=== PATIENT | male | born 1955 | race Caucasian/White ===

== ENCOUNTER 2025-04-16 20:43 | Inpatient (IN) | payer MEDICARE, OTHER ==
[~2025-04-16] VITALS: Ht 175.3 cm; Wt 68.9 kg
[2025-04-16 21:09] LABS: BASOPHILS % (AUTO) 0.7 % (0.0-2.0); EOSINOPHILS # (AUTO) 0.3 K/uL (0.0-0.7); EOSINOPHILS % (AUTO) 4.5 % (0.0-7.0); HEMATOCRIT 34.9 % (36.7-47.1); HEMOGLOBIN 11.7 g/dL (12.5-16.3); LYMPHOCYTES # (AUTO) 1.7 K/uL (0.8-4.8); LYMPHOCYTES % (AUTO) 26.1 % (20.5-51.5); MEAN CORPUSCULAR HEMOGLOBIN 29.6 uug (23.8-33.4); MEAN CORPUSCULAR HGB CONC 34 g/dL (32.5-36.3); MEAN CORPUSCULAR VOLUME 88.2 fL (73.0-96.2); MONOCYTES # (AUTO) 0.6 K/uL (0.1-1.30); MONOCYTES % (AUTO) 9.5 % (0.0-11.0); NEUTROPHILS % (AUTO) 59.2 % (38.5-71.5); PLATELET COUNT (AUTO) 295 K/uL (152-348); RED BLOOD CELL COUNT(AUTO) 3.96 MIL/uL (4.06-5.63); WHITE BLOOD COUNT (AUTO) 6.7 K/uL (3.6-10.2)
[2025-04-16 21:11] LABS: DIFFERENTIAL COMMENT 1
[2025-04-16] MEDS ORDERED: ACET-3117 PO (21:11)
[2025-04-16] MEDS ORDERED: CLON0.1T PO (21:11)
[2025-04-16] MEDS ORDERED: SERT50TA PO (21:11)
[2025-04-16] MEDS ORDERED: ASPI81TA31 PO (21:11)
[2025-04-16] MEDS ORDERED: PSYL0.5211 PO (21:11)
[2025-04-16] MEDS ORDERED: FERR-68 PO (21:11)
[2025-04-16] MEDS ORDERED: MULT-213 PO (21:11)
[2025-04-16] MEDS ORDERED: IPRA3AMP22 IH (21:11)
[2025-04-16] MEDS ORDERED: POLY250017 PO (21:11)
[2025-04-16] MEDS ORDERED: RISP1TAB7 PO (21:11)
[2025-04-16] MEDS ORDERED: LACT1TAB6 PO (21:11)
[2025-04-16] MEDS ORDERED: SENN-18 PO (21:11)
[2025-04-16] MEDS ORDERED: AMLO-212 PO (21:11)
[2025-04-16] MEDS ORDERED: LACT1CAP26 PO (21:11)
[2025-04-16] MEDS ORDERED: DONE5TAB34 PO (21:11)
[2025-04-16] MEDS ORDERED: ASCO500C18 PO (21:11)
[2025-04-16] MEDS ORDERED: ATOR40TA PO (21:11)
[2025-04-16] MEDS ORDERED: TRAZ-257 PO (21:11)
[2025-04-16] MEDS ORDERED: FOLI1TAB27 PO (21:11)
[2025-04-16] MEDS ORDERED: RISP2TAB5 PO (21:11)
[2025-04-16] MEDS ORDERED: LIDOCAINE 2% (GLYDO= UROJET) 10 ML JELLY MM ONE (21:14)
[2025-04-16 21:16] LABS: CALCIUM 8.9 mg/dL (8.5-10.1); CARBON DIOXIDE 27 mmol/L (21-32); CHLORIDE 109 mmol/L (98-107); CREATININE 1.3 mg/dL (0.6-1.3); GLUCOSE 130 mg/dL (74-106); POTASSIUM 3.9 mmol/L (3.5-5.1); SODIUM SERUM 145 mmol/L (136-145); UREA NITROGEN, BLOOD 28 mg/dL (7-18)
[2025-04-16 21:22] LABS: ACETAMINOPHEN < 2.0 ug/mL (10-30); ALANINE AMINOTRANSFERASE 58 U/L (16-63); ALBUMIN 2.8 g/dL (3.4-5.0); ALKALINE PHOSPHATASE 104 U/L (50-136); ASPARTATE AMINOTRANSFERASE 20 U/L (15-37); BILIRUBIN,DIRECT 0.1 mg/dL (0.0-0.2); BILIRUBIN,TOTAL 0.2 mg/dL (0.2-1.0); TOTAL PROTEIN, SERUM 7.2 g/dL (6.4-8.2)
[2025-04-16 21:25] LABS: ETHANOL < 3 MG/DL (0-10)
[2025-04-16 21:29] LABS: THYROID STIMULATING HORMONE 4.925 mIU/mL (0.358-3.740)
[2025-04-16] MEDS: LIDOCAINE 2% (GLYDO= UROJET) 10 ML JELLY MM ONE (21:30)
[2025-04-16 21:35] LABS: *BILIRUBIN,URIN NEGATIVE (NEGATIVE); *BLOOD, URINE NEGATIVE (NEGATIVE); *CLARITY,URINE CLEAR (CLEAR); *COLOR,URINE YELLOW (YELLOW); *KETONES,URINE NEGATIVE (NEGATIVE); *PROTEIN,URINE NEGATIVE (NEGATIVE); *UROBILINOGEN,URINE 0.2 E.U./dl (NORMAL); LEUKOCYTE ESTERASE ,URINE NEGATIVE (NEGATIVE); NITRITE, URINE NEGATIVE (NEGATIVE); PH,URINE 5.5 (5.0-8.0); UGLUCOSE NEGATIVE (NEGATIVE)
[2025-04-16 21:47] LABS: *AMPHETAMINE, URINE NEGATIVE (NEGATIVE); *BARBITURATE, URINE NEGATIVE (NEGATIVE); *BENZODIAZEPINE, URINE NEGATIVE (NEGATIVE); *CANNABINOID, URINE NEGATIVE (NEGATIVE); *COCCAINE, URINE NEGATIVE (NEGATIVE); *OPIATE, URINE NEGATIVE (NEGATIVE); *PHENCYCLIDINE SCREEN,URINE NEGATIVE (NEGATIVE); FENTANYL, URINE NEGATIVE (NEGATIVE)
[2025-04-17] MEDS ORDERED: MAG HYDROX/AL HYDROX/SIMETH 30 ML LIQUID UDC PO PRN (03:30)
[2025-04-17] MEDS ORDERED: MAGNESIUM HYDROXIDE 30 ML LIQUID UDC PO PRN (03:30)
[2025-04-17] MEDS ORDERED: TEMAZEPAM 7.5 MG CAPSULE PO PRN (03:30)
[2025-04-17] MEDS ORDERED: LORAZEPAM 1 MG TABLET PO PRN (03:30)
[2025-04-17] MEDS ORDERED: ACETAMINOPHEN 325 MG TABLET PO PRN (03:30)
[2025-04-17 07:39] VITALS: BP 165/83; TEMP 98.2; O2SAT 96
[2025-04-17] MEDS ORDERED: ACET325T53 PO (14:51)
[2025-04-17] MEDS ORDERED: PSYL1POW PO (14:56)
[2025-04-17 15:42] VITALS: BP 164/92; TEMP 98.2; O2SAT 98
[2025-04-17] MEDS: SERTRALINE HCL 50 MG TABLET PO SCH (16:54)
[2025-04-17] MEDS ORDERED: ALBUTEROL SULFATE 2.5 MG/3 ML NEBU NEB PRN (17:00)
[2025-04-17] MEDS ORDERED: IPRATROPIUM BROMIDE 0.5 MG/2.5 ML NEBU NEB PRN (17:00)
[2025-04-17] MEDS ORDERED: MIRALAX 17 GM POWD.PACK PO PRN (17:00)
[2025-04-17] MEDS ORDERED: CLONIDINE HCL 0.1 MG TABLET PO PRN (17:00)
[2025-04-17] MEDS: AMLODIPINE 5 MG TABLET PO SCH (17:59)
[2025-04-17] MEDS: SENNOSIDES 1 TABLET PO SCH (17:59)
[2025-04-17 20:00] VITALS: BP 144/63; TEMP 98; O2SAT 98
[2025-04-17] MEDS: risperiDONE 2 MG TABLET PO SCH (20:15)
[2025-04-17] MEDS: ATORVASTATIN 40 MG TABLET PO SCH (20:15)
[2025-04-18 08:17] LABS: ALBUMIN 2.6 g/dL (3.4-5.0); BILIRUBIN,TOTAL 0.3 mg/dL (0.2-1.0); CALCIUM 8.3 mg/dL (8.5-10.1); CREATININE 0.9 mg/dL (0.6-1.3); POTASSIUM 3.8 mmol/L (3.5-5.1); TOTAL PROTEIN, SERUM 6.7 g/dL (6.4-8.2)
[2025-04-18] MEDS ORDERED: risperiDONE 1 MG/ML UDC GT SCH (09:00)
[2025-04-18] MEDS: ACIDOPHILUS/BULGARICUS CHEW TAB PO SCH (09:01)
[2025-04-18] MEDS: risperiDONE 1 MG TABLET PO SCH (09:01)
[2025-04-18] MEDS: FOLIC ACID 1 MG TABLET PO SCH (09:01)
[2025-04-18] MEDS: ASCORBIC ACID 500 MG TABLET PO SCH (09:01)
[2025-04-18] MEDS: ASPIRIN 81 MG TAB.CHEW PO SCH (09:01)
[2025-04-18] MEDS: MULTIVITAMINS,THERAPEUTIC TABLET PO SCH (09:01)
[2025-04-18] MEDS: PSYLLIUM SEED PACKET PO SCH (09:05)
[2025-04-18 10:50] VITALS: BP 124/70; TEMP 97.9; O2SAT 96
[2025-04-18 17:41] VITALS: BP 118/58; TEMP 98; O2SAT 97
[2025-04-18 20:00] VITALS: BP 129/63; TEMP 98.5; O2SAT 96
[2025-04-18] MEDS: ATORVASTATIN 10 MG TABLET PO SCH (21:18)
[2025-04-18] MEDS: TEMAZEPAM 7.5 MG CAPSULE PO PRN (21:18)
[2025-04-19 08:18] VITALS: BP 144/78; TEMP 98.1; O2SAT 96
[2025-04-19 17:05] VITALS: BP 151/67; TEMP 98.5; O2SAT 97
[2025-04-19 20:00] VITALS: BP 138/69; TEMP 98.2; O2SAT 95
[2025-04-19] MEDS: LORAZEPAM 1 MG TABLET PO PRN (20:30)
[2025-04-20 08:20] VITALS: BP 142/58; TEMP 97.4; O2SAT 98
[2025-04-20] MEDS: ENSURE ENLIVE (VAN) 240 ML LIQUID PO SCH (08:49)
[2025-04-20 16:48] VITALS: BP 114/79; TEMP 98.3; O2SAT 98
[2025-04-20 22:13] VITALS: BP 125/68; TEMP 98.4; O2SAT 96
[2025-04-21 07:30] VITALS: BP 171/85; TEMP 97.8; O2SAT 100
[2025-04-21] MEDS: risperiDONE 1 MG TABLET PO SCH (09:49)
[2025-04-21 11:00] VITALS: BP 144/75; O2SAT 96
[2025-04-21 16:30] VITALS: BP 138/79; TEMP 98.1; O2SAT 96
[2025-04-21 20:11] VITALS: BP 130/74; TEMP 98.1; O2SAT 98
[2025-04-22 07:52] VITALS: BP 141/71; TEMP 98.4; O2SAT 98
[2025-04-22 15:19] VITALS: BP 130/62; TEMP 98.2; O2SAT 98
[2025-04-22 20:00] VITALS: BP 110/64; TEMP 97.7; O2SAT 95
[2025-04-23 07:59] VITALS: BP 123/65; TEMP 98.4; O2SAT 96
[2025-04-23] MEDS ORDERED: risperiDONE 1 MG TABLET PO SCH (09:00)
[2025-04-23] MEDS: risperiDONE 2 MG TABLET PO SCH (09:46)
[2025-04-23 15:31] VITALS: BP 126/68; TEMP 98.2; O2SAT 98
[2025-04-23 20:00] VITALS: BP 135/72; TEMP 98.2; O2SAT 99
[2025-04-24 08:17] VITALS: BP 156/72; TEMP 98.2; O2SAT 98
[2025-04-24 15:34] VITALS: BP 142/63; TEMP 98.2; O2SAT 94
[2025-04-24 20:09] VITALS: BP 125/66; TEMP 98.1; O2SAT 99
[2025-04-25 08:30] VITALS: BP 145/68; TEMP 98.1; O2SAT 97
[2025-04-25 20:00] VITALS: BP 148/71; TEMP 98; O2SAT 98
[2025-04-26 08:22] VITALS: BP 153/51; TEMP 98.1; O2SAT 98
[2025-04-26] MEDS: SERTRALINE HCL 50 MG TABLET PO SCH (09:15)
[2025-04-26 16:55] VITALS: BP 139/71; TEMP 98; O2SAT 98
[2025-04-26 20:02] VITALS: BP 142/64; TEMP 98.1; O2SAT 96
[2025-04-27 08:30] VITALS: BP 156/69; TEMP 98.6; O2SAT 99
[2025-04-28 07:59] VITALS: BP 111/61; TEMP 97.8; O2SAT 98
[2025-04-28] MEDS: PSYLLIUM SEED PACKET PO SCH (08:50)
[2025-04-28 16:42] VITALS: BP 119/68; TEMP 97.2; O2SAT 97
[2025-04-28 20:12] VITALS: BP 134/64; TEMP 97.9; O2SAT 96
[2025-04-29 08:49] VITALS: BP 147/72; TEMP 98; O2SAT 98
[2025-04-29 09:16] VITALS: BP 147/72
== END 2025-04-29 13:15 | DRG 885 ==
LOC: ER 20:43 → GPS 23:30
PROVIDERS: ADMIT Psychiatry & Neurology Psychiatry; ATTEND Internal Medicine
DX: F20.0 Paranoid schizophrenia (principal); F01.511 Vascular dementia, unspecified severity, with agitation; E44.0 Moderate protein-calorie malnutrition; D68.59 Other primary thrombophilia; I67.89 Other cerebrovascular disease; F01.53 Vascular dementia, unspecified severity, with mood disturbance; Z91.148 Patient's other noncompliance with medication regimen for other reason; D64.9 Anemia, unspecified; Z74.09 Other reduced mobility; Z68.22 Body mass index [BMI] 22.0-22.9, adult; Z86.73 Personal history of transient ischemic attack (TIA), and cerebral infarction without residual deficits; E03.8 Other specified hypothyroidism; D63.8 Anemia in other chronic diseases classified elsewhere; F01.50 Vascular dementia, unspecified severity, without behavioral disturbance, psychotic disturbance, mood disturbance, and anxiety; E88.09 Other disorders of plasma-protein metabolism, not elsewhere classified; E78.5 Hyperlipidemia, unspecified; I11.9 Hypertensive heart disease without heart failure; I25.2 Old myocardial infarction; F32.A Depression, unspecified
CPT/HCPCS: 36415; 70450; 71045; 84443; 84484; 85025; A4606; A4663; C1758; G0480